=== PATIENT | female | born 1955 | race African-American/Black ===

== ENCOUNTER 2019-05-24 14:55 | Emergency (ER) | payer SELFPAY ==
[~2019-05-24] VITALS: Ht 167.6 cm; Wt 77.0 kg
[2019-05-24] MEDS ORDERED: SODIUM CHLORIDE 0.9% 1,000 ML IV ONE (15:45)
[2019-05-24] MEDS ORDERED: ONDANSETRON HCL 4MG/2ML INJ IV ONE (15:45)
[2019-05-24 16:10] LABS: BASOPHILS % 1.3 % (0.0-2.0); EOSINOPHILS % 0.4 % (0.0-5.0); LYMPHOCYTES % 24.9 % (20.0-50.0); MEAN CORPUSCULAR HEMOGLOBIN 31.9 pg (28.0-32.0); MEAN CORPUSCULAR VOLUME 95.6 fL (81.0-99.0); MEAN PLATELET VOLUME 8.8 fl (7.4-10.4); MONOCYTES % 3.5 % (2.0-8.0); NEUTROPHILS % 69.9 % (40.0-76.0); PLATELET 309 x1000/uL (130-400); RED CELL DISTRIBUTION WIDTH 13.5 % (11.6-14.6)
[2019-05-24 16:15] LABS: PROTHROMBIN TIME 10.3 sec (9.6-11.0)
[2019-05-24 16:16] LABS: CHLORIDE 109 mEq/L (98-107)
[2019-05-24] MEDS ORDERED: MAGNESIUM/ALUMINUM HYDROXIDE/SIMETHICONE 30ML UDC PO STA (18:01)
[2019-05-24] MEDS ORDERED: METOCLOPRAMIDE HCL 10MG/2ML VIAL IV STA (18:01)
[2019-05-24] MEDS ORDERED: VISCOUS LIDOCAINE 2% 15 ML UDC PO STA (18:01)
[2019-05-24 18:04] LABS: CLARITY URINE CLEAR (CLEAR); COLOR URINE YELLOW (YELLOW); KETONES URINE 4+ (NEGATIVE); LEUKOCYTE ESTERASE URINE NEGATIVE (NEGATIVE); NITRITE URINE NEGATIVE (NEGATIVE); OCCULT BLOOD URINE NEGATIVE (NEGATIVE); PH URINE 5.5 (4.5-8.0); PROTEIN URINE NEGATIVE (NEGATIVE); SPECIFIC GRAVITY URINE 1.024 (1.005-1.030)
[2019-05-24] MEDS ORDERED: DICYCLOMINE HCL 10MG/ML 2ML AMP IM ONE (18:15)
[2019-05-24] MEDS ORDERED: DIPHENHYDRAMINE 50MG/ML VIAL IV ONE (18:15)
[2019-05-24] MEDS ORDERED: SODIUM CHLORIDE 0.9% 1,000 ML IV NR (18:30)
[2019-05-24 20:03] VITALS: BP 157/76
== END 2019-05-24 20:03 | disposition home or self-care (01) ==
LOC: ER 14:55
DX: R10.13 Epigastric pain (principal); R11.2 Nausea with vomiting, unspecified; E86.0 Dehydration; R82.4 Acetonuria; R19.8 Other specified symptoms and signs involving the digestive system and abdomen; Z87.891 Personal history of nicotine dependence
CPT/HCPCS: 36415; 80053; 81003; 83690; 85025; 85610; 93005; 96361; 96372; 96374; 96375; 99283; J0500; J1200; J2405; J2765; J7030